=== PATIENT | female | born 1970 | race African-American/Black ===

== ENCOUNTER 2020-09-14 12:08 | Emergency (ER) | payer SELFPAY ==
[~2020-09-14] VITALS: Ht 167.6 cm; Wt 77.0 kg
--- NOTE | 2020-09-14 12:36 | PHYS DOC ---
General Adult EDM: Chief Complaint: SEIZURE HPI: HPI: Patient is a 50 year old female who presents with states she is a begin shaking at adventism and fell backward and hit the back of her head but did not pass out. She states she does not remember when this happens with other people to tell her about them. She states that this morning gets up to get ready for work he gets up a little after 3 AM because he is to be at work by 4 and states that she had began shaking while she was in bed. She states that nobody has ever told her how long any of these episodes last. She states that she was seen at [facility] for these seizures about a month or 2 ago but they wanted to admit her and she refused admission and stated " I do not want nobody to be cutting all me". She states that she did last used cocaine 2 days ago. She states she has chest pains off and on but has not in a while. States she does have a slight headache but is not the worst headache she is ever had that she rates a 6 out of 10. She states she did not take any medication for the pain. She is also been out of her hypertension medications for "quite some time". Patient denies chest pain, shortness of breath, nausea, vomiting, fever, cough, abdominal pain, diarrhea, dizziness, vision changes, numbness or tingling, focal weakness, syncope. She has a history of hypertension and use seizures. Review of Systems: Review of Systems: Constitutional: Denies fever or chills. [] Eyes: Denies change in visual acuity. [] HENT: Denies nasal congestion or sore throat. [] Respiratory: Denies cough or shortness of breath. [] Cardiovascular: Denies chest pain or edema. [] GI: Denies abdominal pain, nausea, vomiting, bloody stools or diarrhea. [] : Denies dysuria. [] Musculoskeletal: Denies back pain or joint pain. [] Integument: Denies rash. [] Neurologic: + Seizure, + headache, denies focal weakness or sensory changes. [] Endocrine: Denies polyuria or polydipsia. [] Lymphatic: Denies swollen glands. [] Psychiatric: Denies depression or anxiety. [] Heart Score: Risk Factors: Risk Factors: DM, Current or recent (<one month) smoker, HTN, HLP, family history of CAD, obesity. Risk Scores: Score 0 - 3: 2.5% MACE over next 6 weeks - Discharge Home Score 4 - 6: 20.3% MACE over next 6 weeks - Admit for Clinical Observation Score 7 - 10: 72.7% MACE over next 6 weeks - Early Invasive Strategies Physical Exam: PE: Constitutional: Well developed, well nourished, no acute distress, non-toxic appearance. [] HENT: Normocephalic, atraumatic, bilateral external ears normal, oropharynx moist, no oral exudates, nose normal. [] Eyes: PERRLA, EOMI, conjunctiva normal, no discharge. [] Neck: Normal range of motion, no tenderness, supple, no stridor. [] Cardiovascular:Heart rate regular rhythm, no murmur [] Lungs & Thorax: Bilateral breath sounds clear to auscultation [] Abdomen: Bowel sounds normal, soft, no tenderness, no masses, no pulsatile masses. [] Skin: Warm, dry, no erythema, no rash. [] Back: No tenderness, no CVA tenderness. [] Extremities: No tenderness, no cyanosis, no clubbing, ROM intact, no edema. [] Neurologic: Alert and oriented X 3, normal motor function, normal sensory function, no focal deficits noted. [] Psychologic: Affect normal, judgement normal, mood normal. Normal physical exam [] EKG: EK and read by Dr Oneill as Sinus Rhythm and no STEMI[] Radiology/Procedures: Radiology/Procedures: [] Impression: [facility] [address] [place] [address] IMAGING REPORT Signed PATIENT: CUONG GONG LACCOUNT: [id number] : 1970 LOCATION: ER AGE: 50 SEX: F EXAM STATUS: REG ER ORD. PHYSICIAN: VALENTINE ELLIS APRN REASON: seizure, headache PROCEDURE: CT HEAD WO CONTRAST Examination: CT HEAD/BRAIN WO History: seizure, headache Comparison/Correlation: None Findings: Axial images of the head were obtained without contrast. Ventricles are normal size. No intracranial hemorrhage, midline shift or mass effect. Chronic ischemic changes and white matter is present. Chronic pansinusitis is pr esent. Mastoid air cells are clear. Bony structures are intact. Impression: No suspicious intracranial process. Chronic pansinusitis. PQRS Compliance Statement: One or more of the following individualized dose reduction techniques were utilized for this examination: 1. Automated exposure control 2. Adjustment of the mA and/or kV according to patient size 3. Use of iterative reconstruction technique Electronically signed by: Zeus Villavicencio MD (09/14/2020 1:30 PM) [id number] DICTATED and SIGNED BY: ZEUS VILLAVICENCIO MD DATE: 09/14/20 [id number] 0 Course & Med Decision Making: Course & Med Decision Making Pertinent Labs and Imaging studies reviewed. (See chart for details) See HPI. Alert and oriented x4. Ambulatory with steady gait. Speaks in full complete sentences. Lungs are clear all station all lobes. No extremity swelling. PERRLA. Blood work is unremarkable. Lactic acid is normal. Patient remains alert and oriented and has never been postictal. EKG showed normal sinus rhythm. She has positive for cocaine. Patient's blood pressure is 145/79. CT head shows chronic pansinusitis. Patient has not had a seizure since she has been here. Patient can follow up with Primary care provider and I will refer her to Neurology. [] Felipe Disclaimer: Felipe Disclaimer: This electronic medical record was generated, in whole or in part, using a voice recognition dictation system. NIHSS Stroke Scale NIH Stroke Scale: NIH Stroke Scale Response (Comments) Value Level of Consciousness: 0 Alert/Responsive 0 LOC Questions: 0 Answers both correctly 0 LOC Commands: 0 Performs both tasks 0 Best Gaze: 0 Normal 0 Visual: 0 No visual loss 0 Facial Palsy: 0 Normal, symmetrical 0 Motor - Left Arm 0 No drift 0 Motor - Right Arm 0 No drift 0 Motor - Left Leg 0 No drift 0 Motor: Right Leg 0 No drift 0 Limb Ataxia: 0 Absent 0 Sensory: 0 No loss 0 Best Language: 0 Normal 0 Dysathria: 0 Normal 0 Extinction and Inattention: 0 Normal 0 Total 0 Departure Departure Impression: Primary Impression: Chronic sinusitis Qualified Codes: J32.4 - Chronic pansinusitis Additional Impression: Seizure-like activity Disposition: 01 DC HOME SELF CARE/HOMELESS Condition: STABLE Referrals: NO PCP (PCP) BRANDI NEGRETE MD Patient Instructions: Seizure, Adult, [id number], Sinusitis, [id number] Additional Instructions: Follow up with a neurologist. Stop using illegal substances. Drink plenty of fluids. Follow up with a primary care provider as soon as possible. Scripts Azithromycin (AZITHROMYCIN TABLET) 250 Mg Tablet 1 PKG PO UD for 5 Days, #6 TAB 0 Refills 2 the first day followed by 1 for days 2-5 Prov: VALENTINE ELLIS APRN 09/14/20 VALENTINE ELLIS APRN Sep 14, 2020 12:36
[2020-09-14 12:49] LABS: BASO # 0.1 x10^3/uL (0.0-0.2); BASO % 1 % (0-3); EOS # 0.4 x10^3/uL (0.0-0.7); EOS % 5 % (0-3); HEMATOCRIT 37.8 % (36.0-47.0); HEMOGLOBIN 12.6 g/dL (12.0-15.5); LYMPH # 3.1 x10^3/uL (1.0-4.8); LYMPH % 36 % (24-48); MEAN CORPUSCULAR HEMOGLOBIN 28 pg (25-35); MEAN CORPUSCULAR HGB CONC 33 g/dL (31-37); MEAN CORPUSCULAR VOLUME 85 fL (79-100); MONO # 0.6 x10^3/uL (0.0-1.1); MONO % 7 % (0-9); NEUT # 4.4 x10^3/uL (1.8-7.7); NEUT % 51 % (31-73); PLATELET COUNT 221 x10^3/uL (140-400); RED BLOOD COUNT 4.44 x10^6/uL (3.50-5.40); WHITE BLOOD COUNT 8.6 x10^3/uL (4.0-11.0)
[2020-09-14 12:49] LABS: BARBITURATES NEG (NEG); BENZODIAZEPINES NEG (NEG); CANNABINOIDS NEG (NEG); COCAINE POS (NEG); METHADONE NEG (NEG); OPIATES NEG (NEG); PHENCYCLIDINE NEG (NEG)
[2020-09-14 12:52] LABS: AMPHETAMINE/METHAMPHETAMINE NEG (NEG)
[2020-09-14] MEDS: ACETAMINOPHEN 500 MG TABLET PO ONE (12:56)
[2020-09-14 12:58] LABS: CALCIUM 8.8 mg/dL (8.5-10.1); CREATININE 0.9 mg/dL (0.6-1.0); GFR 79.6; POTASSIUM 4.4 mmol/L (3.5-5.1)
[2020-09-14 13:11] LABS: ALBUMIN 3.5 g/dL (3.4-5.0); TOTAL BILIRUBIN 0.2 mg/dL (0.2-1.0); TOTAL PROTEIN 6.9 g/dL (6.4-8.2)
[2020-09-14 13:22] VITALS: BP 158/81
--- NOTE | 2020-09-14 13:32 | RAD ---
Examination: CT HEAD/BRAIN WO History: seizure, headache Comparison/Correlation: None Findings: Axial images of the head were obtained without contrast. Ventricles are normal size. No int racranial hemorrhage, midline shift or mass effect. Chronic ischemic changes and white matter is pres ent. Chronic pansinusitis is present. Mastoid air cells are clear. Bony structures are intact. Impression: No suspicious intracranial process. Chronic pansinusitis. PQRS Compliance Statement: One or more of the following individualized dose reduction techniques were utilized for this examinat ion: 1. Automated exposure control 2. Adjustment of the mA and/or kV according to patient size 3. Use of iterative reconstruction technique Electronically signed by: Zeus Youngblood MD (09/14/2020 1:30 PM) [id number]
[2020-09-14] MEDS ORDERED: AZIT250T6 PO (13:43)
== END 2020-09-14 14:02 | disposition home or self-care (01) ==
LOC: ER 12:08
DX: J32.4 Chronic pansinusitis (principal); R56.9 Unspecified convulsions; R07.89 Other chest pain; R51.9 Headache, unspecified
CPT/HCPCS: 36415; 70450; 80053; 80307; 83605; 84484; 85025; 93005; 99285

== ENCOUNTER 2020-10-16 11:06 | Emergency (ER) | payer SELFPAY ==
[~2020-10-16] VITALS: Ht 167.6 cm; Wt 81.2 kg
[~2020-10-16 11:06] MED LIST: AZIT250T6 PO
[2020-10-16] MEDS ORDERED: DEXAMETHASONE SOD PHOS 20 MG/5 ML VIAL. IV ONE (11:30)
[2020-10-16 11:47] LABS: BASO # 0.1 x10^3/uL (0.0-0.2); BASO % 1 % (0-3); EOS # 0.3 x10^3/uL (0.0-0.7); EOS % 4 % (0-3); HEMATOCRIT 35.7 % (36.0-47.0); HEMOGLOBIN 11.7 g/dL (12.0-15.5); LYMPH # 3.1 x10^3/uL (1.0-4.8); LYMPH % 38 % (24-48); MEAN CORPUSCULAR HEMOGLOBIN 28 pg (25-35); MEAN CORPUSCULAR HGB CONC 33 g/dL (31-37); MEAN CORPUSCULAR VOLUME 86 fL (79-100); MONO # 0.6 x10^3/uL (0.0-1.1); MONO % 7 % (0-9); NEUT # 4.2 x10^3/uL (1.8-7.7); NEUT % 51 % (31-73); PLATELET COUNT 223 x10^3/uL (140-400); RED BLOOD COUNT 4.17 x10^6/uL (3.50-5.40); RED CELL DISTRIBUTION WIDTH 14.3 % (11.5-14.5); WHITE BLOOD COUNT 8.3 x10^3/uL (4.0-11.0)
--- NOTE | 2020-10-16 11:48 | PHYS DOC ---
Past Medical History Past Medical History: Hypertension, Seizure Past Surgical History: Hysterectomy Additional Past Surgical Histo: ectopic Smoking Status: Current Every Day Smoker Alcohol Use: Occasionally General Adult EDM: Chief Complaint: UPPER EXTREMITY PAIN HPI: HPI: 50-year-old female past medical history of hypertension, tobacco dependence and benign left lumpectomy presents to the ed with c/o sharp, left sided, nonr adiating chest pain, with associated left sided neck pain, tingling in left fingers and tender swellling over left upper chest wall for the past 2-3 days. Denies any trauma/blunt injury or assault. No h/o cocaine or IVDU. H/o 1 abnormal mammogram with benign left sided biopsy -has not had a repeat mammogram after this. S/p hysterectomy 2/2 menorrhagia from fibroids. No FH of cancer (breast/ovarian/uterine/endometrial), CAD, sudden , coagulopathy, cardiac arrhythmia, connective tissue disorder or aortic disease including dissection or aneurysm. Has no insurance and reports she cannot afford to take her blood pressure medicine. Review of Systems: Review of Systems: Constitutional: Denies fever or chills. [] Eyes: Denies change in visual acuity. [] HENT: Denies nasal congestion or sore throat. [] Respiratory: Denies cough or shortness of breath or hemoptysis Cardiovascular: Denies syncope or edema. [] GI: Denies abdominal pain, nausea, vomiting, bloody stools or diarrhea. [] : Denies dysuria or hematuria Musculoskeletal: Denies back pain or joint pain. [] Integument: Denies rash or diaphoresis Neurologic: Denies headache, focal weakness or sensory changes. [] Endocrine: Denies polyuria or polydipsia. [] Lymphatic: Denies swollen glands. [] Psychiatric: Denies depression or anxiety. [] Heart Score: HEART Score for Chest Pain: HEART Score for Chest Pain Response (Comments) Value History Slighlty/Non-Suspicious 0 ECG Nonspecific Repolarizatio 1 Age >45 - < 65 1 Risk Factors 1 or 2 Risk Factors 1 Troponin < Normal Limit 0 Total 3 Risk Factors: Risk Factors: DM, Current or recent (<one month) smoker, HTN, HLP, family history of CAD, obesity. Risk Scores: Score 0 - 3: 2.5% MACE over next 6 weeks - Discharge Home Score 4 - 6: 20.3% MACE over next 6 weeks - Admit for Clinical Observation Score 7 - 10: 72.7% MACE over next 6 weeks - Early Invasive Strategies Current Medications: Current Medications Medications (Trade) Dose Ordered Sig/Sebastian Start Time Stop Time Status Last Admin Dose Admin Dexamethasone Sodium Phosphate (Decadron) 10 mg 1X ONCE 10/16/20 11:30 10/16/20 11:31 DC Hydromorphone HCl (Dilaudid) 0.5 mg 1X ONCE 10/16/20 12:00 10/16/20 12:01 Allergies: Allergies: Allergies Coded Allergies Type Severity Reaction Last Updated Verified No Known Drug Allergies 09/14/20 No Physical Exam: PE: Constitutional: Well developed, well nourished, no acute distress, non-toxic appearance. HENT: Normocephalic, atraumatic, Eyes: EOMI, conjunctiva normal, no discharge, very tender left paraspinal posterior cervical muscles Neck: Normal range of motion, supple, Cardiovascular: S1/2 present, regular rhythm, left upper chest wall just inferior to left shoulder with palpable swelling and tenderness-no associated rash or crepitus, Breast: Chaperoned by RN, no obvious deformity or lump palpated Lungs & Thorax: Speaking in full sentences, bilateral equal chest rise, no tachypnea or increased work of breathing Abdomen: soft, no tenderness, Skin: Warm, dry, no erythema, no rash. [] Back: No tenderness, no CVA tenderness Extremities: No tenderness, no cyanosis, no unilateral edema, equal radial pulses bilaterally Neurologic: Alert and oriented X 3, normal motor function, normal sensory function, no focal deficits noted. [] Psychologic: Affect normal, judgement normal, mood normal. [] Current Patient Data: Vital Signs: Vital Signs Date Time Temp Pulse Resp B/P (MAP) Pulse Ox O2 Delivery O2 Flow Rate FiO2 10/16/20 11:30 97.3 70 18 159/79 (105) 99 Room Air 97.3 EKG: EKG: Sinus rhythm at 68 bpm, no axis deviation, T wave inversion aVL and V2, no ST elevations or ST depressions Radiology/Procedures: Radiology/Procedures: []IMAGING REPORT Signed PATIENT: CUONG GONG LACCOUNT: [id number] : 1970 LOCATION: ER AGE: 50 SEX: F EXAM STATUS: REG ER ORD. PHYSICIAN: DIXON HAMMOND DO REASON: cp PROCEDURE: PORTABLE CHEST 1V XR CHEST 1V CLINICAL INDICATIONS: Chest pain. COMPARISON: February 13, 2019 Findings: Chronic right lateral pleural thickening is seen. No acute lung i nfiltrate or pleural effusion or pulmonary edema or lung mass or pneumothorax is seen. The heart size, pulmonary vasculature, mediastinum and both linwood are unremarkable. IMPRESSION: No acute radiographic abnormality is seen. Electronically signed by: Leticia Pérez MD (10/16/2020 11:47 AM) [id number] DICTATED and SIGNED BY: LETICIA PÉREZ MD DATE: 10/16/20 [id number] 0 IMAGING REPORT Signed PATIENT: CUONG GONG LACCOUNT: [id number] : 1970 LOCATION: ER AGE: 50 SEX: F EXAM STATUS: REG ER ORD. PHYSICIAN: DIXON HAMMOND DO REASON: Chest pain, left chest wall swelling - mass? PROCEDURE: CT CHEST W/CONTRAST CHEST CT WITH CONTRAST CLINICAL INDICATIONS: Chest pain with left chest wall swelling/mass? TECHNIQUE: After IV infusion of 75 cc of Omnipaque 300, helical CT scanning of the chest through the level of the adrenal glands was performed. PQRS compliance Statement One or more of the following individualized dose reduction techniques were utilized for this study: 1. Automated exposure control 2. Adjustment of the mA and/or kV according to patient size 3. Use of iterative reconstruction technique FINDINGS: No focal aneurysmal dilatation or dissection of the thoracic aorta is seen. This study was not performed to evaluate for pulmonary arterial emboli but no obvious central pulmonary arterial emboli are seen on this study. The heart size is normal and no pericardial effusion is seen. No enlarged thoracic lymphadenopathy is evident. No pleural effusion or pneumothorax is seen. Peripheral dependent groundglass lung infiltrates are seen most likely due to atelectasis. No lung consolidation or air bronchograms are seen. No lung mass is seen. The proximal bronchial tree is patent. No adrenal mass is seen. No lytic process is seen. No compression fracture of the thoracic spine is seen. No rib fracture or sternal fracture is seen. IMPRESSION: Dependent atelectasis of both lower lobes. No other acute abnormality is evident. With regard to the left chest wall swelling/mass, no obvious soft tissue mass or soft tissue abscess is seen. However, the left breast is not completely seen in this study and the left breast tissue is dense. If there is chest wall swelling and/or mass involving the left breast, then further evaluation with sonography may be needed. If the swelling/mass involves the left breast and it has been present for awhile, then OUTPATIENT diagnostic mammography may be needed as we ll. Electronically signed by: Leticia Pérez MD (10/16/2020 2:18 PM) [id number] DICTATED and SIGNED BY: LETICIA PÉREZ MD DATE: 10/16/20 [id number] 0 Course & Med Decision Making: Course & Med Decision Making Pertinent Labs and Imaging studies reviewed. (See chart for details) Concern for atypical chest pain since friday. Drug screen positive for cocaine. Last cocaine use was Friday night, > 36 hours ago. Pt initially denied cocaine use-states she took the cocaine to help her chest pain, no improvement or worsening. Patient afebrile with no tachycardia. Has no leukocytosis. Labs show slightly worsened normocytic anemia. Troponin and D- dimer within normal limits. Will discharge home with strict ED return precautions were given for worsening pain, neurologic deficits, dyspnea, fever or hemoptysis.. Encouraged urgent outpatient follow-up with PMD for mammogram and cardiology for outpt evaluation. Life-threatening processes were considered but are low suspicion at this time, given history, physical exam and ED workup. Pt was educated on all prescription medications and adverse effects. All patient's questions were answered and pt was stable at time of discharge. Life/limb-threatening differential includes but is not limited to, acute myocardial infarction, aortic dissection, congestive heart failure, esophageal injury including rupture, surgical abdomen, arrhythmia, cardiomyopathy, myocarditis, pericarditis, peptic ulcer disease, pneumomediastinum, pneumonia, pneumothorax, pulmonary embolus, unstable angina, rib fracture, contusion, pericardial tamponade or effusion, or pulmonary contusion I spoken with the patient and her caregivers. I explained the patient's condition, diagnoses and treatment plan based on the information available to me at this time. I have answered the patient and her caregiver's questions and addressed any concerns. The patient and her caregivers have a good understanding of patient's diagnosis, condition and treatment plan as can be expected at this point. Vital signs have been stable. Patient's condition is stable and appropriate for discharge from the emergency department. Patient will pursue further outpatient evaluation with primary care physician or other designated or consulting physician as outlined in the discharge instructions. The patient and/or caregivers are agreeable to this plan of care and follow-up instructions have been explained in detail. The patient and/or caregivers have received these instructions in written form and have expressed an understanding of the discharge instructions. The patient and/or caregivers are aware that any significant change of condition or worsening of symptoms should prompt immediate return to this or the closest emergency department or call to 911. Felipe Disclaimer: Felipe Disclaimer: This electronic medical record was generated, in whole or in part, using a voice recognition dictation system. Departure Departure Impression: Primary Impression: Chest pain Additional Impressions: Soft tissue swelling of chest wall Cocaine use Normocytic anemia Disposition: 01 DC HOME SELF CARE/HOMELESS Condition: STABLE Referrals: NO PCP (PCP) FOLLOW UP WITH FAMILY MEDICINE: to schedule mammogram Family Medicine Address: [address] [facility] [address] [place] [address] Patient Instructions: Chest Pain (Nonspecific), Cocaine Abuse-Brief, Edema Additional Instructions: FOLLOW UP WITH CARDIOLOGY: for outpt chest pain evaluation [facility] Address: [address] [place] [address] EMERGENCY DEPARTMENT GENERAL DISCHARGE INSTRUCTIONS Thank you for coming to [facility] Emergency Department (ED) today and trusting us with you care. We trust that you had a positive experience in our Emergency Department. If you wish to speak to the department management, you may call the Director at [phone]. YOUR FOLLOW UP INSTRUCTIONS ARE FOLLOWS: 1. Do you have a private Doctor? If you do not have a private doctor, please ask for a resource list of physicians or clinics that may be able to assist you with f ollow up care. 2. The Emergency Physicain has interpreted your x-rays. The X-Ray specialist will also review them. If there is a change in the findings, you will be notified in 48 hours when at all possible. 3. A lab test or culture has been done, your results will be reviewed and you will be notified if you need a change in treatment. ADDITIONAL INSTRUCTIONS AND INFORMATION: 1. Your care today has been supervised by a physician who is specially trained in emergency care. Many problems require more than one evaluation for a complete diagnosis and treatment. We recommend that you schedule your follow up appointment as recommended to ensure complete treatment of you illness or injury. If you are unable to obtain follow up care and continue to have a problem, or if your condition worsens, we recommend that you return to the ED. 2. We are not able to safely determine your condition over the phone nor are we able to give sound medical advice over the phone. For these safety reasons, if you call for medical advice we will ask you to come to the ED for further evaluation. 3. If you have any questions regarding these discharge instructions please call the ED at [phone]. SAFETY INFORMATION: In the interest of safety, wellness, and injury prevention; we encourage you to wear your sealbelt, if you smoke; quite smoking, and we encourage family to use a protect jonelle helmet for bicycling and other sporting events that present an increased risk for head injury. IF YOUR SYMPTOMS WORSEN OR NEW SYMPTOMS DEVELOP, OR YOU HAVE CONCERNS ABOUT YOUR CONDITION; OR IF YOUR CONDITION WORSENS WHILE YOU ARE WAITING FOR YOUR FOLLOW UP APPOINTMENT; EITHER CONTACT YOUR PRIMARY CARE DOCTOR, THE PHYSICIAN WHOSE NAME AND NUMBER YOU WERE GIVEN, OR RETURN TO THE ED IMMEDIATELY. DIXON JACKSON DO Oct 16, 2020 11:48
--- NOTE | 2020-10-16 11:49 | RAD ---
XR CHEST 1V CLINICAL INDICATIONS: Chest pain. COMPARISON: February 13, 2019 Findings: Chronic right lateral pleural thickening is seen. No acute lung infiltrate or pleural effus ion or pulmonary edema or lung mass or pneumothorax is seen. The heart size, pulmonary vasculature, mediastinum and both linwood are unremarkable. IMPRESSION: No acute radiographic abnormality is seen. Electronically signed by: James Pérez MD (10/16/2020 11:47 AM) [id number]
[2020-10-16 11:59] LABS: CALCIUM 8.4 mg/dL (8.5-10.1); CREATININE 0.9 mg/dL (0.6-1.0); GFR 79.6; POTASSIUM 4.1 mmol/L (3.5-5.1)
[2020-10-16] MEDS ORDERED: HYDROmorphone 2 MG/ML VIAL IVP ONE (12:00)
[2020-10-16 12:05] LABS: ALBUMIN 3.3 g/dL (3.4-5.0); ALBUMIN/GLOBULIN RATIO 1.1 (1.0-1.7); TOTAL BILIRUBIN 0.3 mg/dL (0.2-1.0); TOTAL PROTEIN 6.3 g/dL (6.4-8.2)
[2020-10-16 12:19] LABS: PREG TEST PT QUAL NEGATIVE (NEG)
[2020-10-16] MEDS ORDERED: CONTRAST GIVEN. MC PRN (13:30)
[2020-10-16] MEDS ORDERED: IOHEXOL 300 MG/ML 100ML VIAL. IV ONE (13:30)
[2020-10-16 14:08] LABS: BARBITURATES NEG (NEG); BENZODIAZEPINES NEG (NEG); CANNABINOIDS NEG (NEG); COCAINE POS (NEG); METHADONE NEG (NEG); OPIATES NEG (NEG); PHENCYCLIDINE NEG (NEG)
[2020-10-16 14:16] LABS: AMPHETAMINE/METHAMPHETAMINE NEG (NEG)
--- NOTE | 2020-10-16 14:20 | RAD ---
CHEST CT WITH CONTRAST CLINICAL INDICATIONS: Chest pain with left chest wall swelling/mass? TECHNIQUE: After IV infusion of 75 cc of Omnipaque 300, helical CT scanning of the chest through the level of the adrenal glands was performed. PQRS compliance Statement One or more of the following individualized dose reduction techniques were utilized for this study: 1. Automated exposure control 2. Adjustment of the mA and/or kV according to patient size 3. Use of iterative reconstruction technique FINDINGS: No focal aneurysmal dilatation or dissection of the thoracic aorta is seen. This study was not performed to evaluate for pulmonary arterial emboli but no obvious central pulmonary arterial emb katerina are seen on this study. The heart size is normal and no pericardial effusion is seen. No enlarged thoracic lymphadenopathy is evident. No pleural effusion or pneumothorax is seen. Peripheral depende nt groundglass lung infiltrates are seen most likely due to atelectasis. No lung consolidation or air bronchograms are seen. No lung mass is seen. The proximal bronchial tree is patent. No adrenal mass is seen. No lytic process is seen. No compression fracture of the thoracic spine is seen. No rib fra cture or sternal fracture is seen. IMPRESSION: Dependent atelectasis of both lower lobes. No other acute abnormality is evident. With regard to the left chest wall swelling/mass, no obvious soft tissue mass or soft tissue abscess is seen. However, the left breast is not completely seen in this study and the left breast tissue is dense. If there is chest wall swelling and/or mass involving the left breast, then further evaluation with sonography may be needed. If the swelling/mass involves the left breast and it has been present for awhile, then OUTPATIENT diagnostic mammography may be needed as well. Electronically signed by: James Pérez MD (10/16/2020 2:18 PM) [place] [id number]
[2020-10-16 15:01] VITALS: BP 159/81
[2020-10-16] MEDS ORDERED: KETOROLAC 15 MG/ML VIAL. IVP ONE (15:30)
--- NOTE | 2020-10-17 10:44 | EKG ---
[facility] [address] [place] [address] Test Date: 2020-10-16 Test Time: 11:13:51 Pat Name: CUONG GONG Department: Room: Gender: F [employer]: : 1970 Requested By: DIXON HAMMOND Order Number: [id number] Reading MD: Measurements Intervals [place] Rate: 68 P: 59 VT: 152 QRS: 66 QRSD: 80 T: 60 QT: 396 QTc: 426 Interpretive Statements SINUS RHYTHM NO SPECIFIC ECG ABNORMALITIES RI6.01 No previous ECG available for comparison
== END 2020-10-16 15:37 | disposition home or self-care (01) ==
LOC: ER 11:06
DX: R07.89 Other chest pain (principal); D64.9 Anemia, unspecified; F14.90 Cocaine use, unspecified, uncomplicated; R22.2 Localized swelling, mass and lump, trunk; M54.2 Cervicalgia; I10 Essential (primary) hypertension; F17.200 Nicotine dependence, unspecified, uncomplicated
CPT/HCPCS: 36415; 71045; 71260; 80053; 80307; 83880; 84484; 84703; 85025; 85379; 93005; 96374; 96375; 99285; J1100; J1170; J1885; Q9967